=== PATIENT | male | born 2000 | race Two or more races ===

== ENCOUNTER 2020-01-23 15:58 | Emergency (ER) | payer OTHER ==
[~2020-01-23] VITALS: Ht 165.1 cm; Wt 71.7 kg
--- NOTE | 2020-01-23 18:11 | REP ---
Right ring finger four views: There is a nondisplaced fracture of the distal tuft of the distal phalange. No dislocation. Mineralization and joint spaces are normal. There are no foreign bodies or calcifications per Impression: Nondisplaced fracture of the distal tuft. Electronically Signed by Yon Rizo MD 01/23/2020 06:02 P
[2020-01-23 18:23] VITALS: BP 132/76
== END 2020-01-23 18:30 | disposition home or self-care (01) ==
LOC: M ED 15:58
DX: S62.664A Nondisplaced fracture of distal phalanx of right ring finger, initial encounter for closed fracture (principal); W23.0XXA Caught, crushed, jammed, or pinched between moving objects, initial encounter; Y92.89 Other specified places as the place of occurrence of the external cause; Y93.9 Activity, unspecified; Y99.1 Military activity